=== PATIENT | male | born 1935 | race Caucasian/White ===

== ENCOUNTER 2016-08-07 15:52 | Emergency (ER) | payer MEDICARE ==
[2016-08-07] MEDS ORDERED: ASPIRIN 81 MG CHEWABLE TABLET PO ONE (17:11)
[2016-08-07] MEDS ORDERED: FUROSEMIDE IV 20MG/2ML VIAL IVP ONE (17:11)
--- NOTE | 2016-08-07 17:16 | Emergency Department Record ---
History of Present Illness - General Chief complaint: Swelling of legs Stated complaint: LEGS SWOLLEN Time Seen by Provider: 08/07/16 17:04 Source: Patient, RN Mode of Arrival: Ambulatory - History of Present Illness Initial comments: dyspnea and edema of legs and this has been going on for 6 months and he got a cardiac stent at [facility] in [place] with Dr. Latif. Patient denies chest pain. No leg pains and the edema is better in the am. Onset/Timin -: Month(s) Location: Bilateral, Foot, Lower Leg Consistency: Constant Improves with: Nothing Worsens with: Nothing Associated Symptoms: Denies other symptoms - Related Data Home Medications Medication Instructions Recorded Confirmed Last Taken Aspirin [Aspir-Low] 81 mg PO DAILY 08/07/16 08/07/16 08/07/16 Carvedilol [Coreg] 6.25 mg PO BID 08/07/16 08/07/16 08/07/16 Clopidogrel Bisulfate [Clopidogrel] 75 mg PO DAILY 08/07/16 08/07/16 08/07/16 Finasteride 5 mg PO DAILY 08/07/16 08/07/16 08/07/16 Furosemide [Lasix] 40 mg PO DAILY 08/07/16 08/07/16 08/07/16 Lisinopril 2.5 mg PO DAILY 08/07/16 08/07/16 08/07/16 Minocycline HCl [Minocin] 100 mg PO BID 08/07/16 08/07/16 08/07/16 Potassium Chloride 10 meq PO DAILY 08/07/16 08/07/16 08/07/16 Simvastatin [Zocor] 20 mg PO QHS 08/07/16 08/07/16 08/06/16 Tamsulosin HCl [Flomax] 0.4 mg PO DAILY 08/07/16 08/07/16 08/07/16 Allergies Allergy/AdvReac Type Severity Reaction Status Date / Time NO KNOWN DRUG ALLERGY Allergy Uncoded 06/24/13 10:05 Travel Screening - Travel/Exposure Within Last 30 Days Have you traveled within the last 30 days?: No - Travel/Exposure Within Last Year Have you traveled outside the [place] in the last year?: No - Additonal Travel Details Have you been exposed to anyone with a communicable illness?: No - Travel Symptoms Symptom Screening: None Review of Systems Reviewed: No additional complaints except as noted below Constitutional: Reports: As per HPI. Denies: Chills, Fever, Malaise, Night sweats, Weakness, Weight change Eyes: Reports: As per HPI. Denies: Eye discharge, Eye pain, Photophobia, Vision change ENT: Reports: As per HPI. Denies: Congestion, Dental pain, Ear pain, Epistaxis , Hearing loss, Throat pain Respiratory: Reports: As per HPI, Dyspnea. Denies: Cough, Hemoptysis, Stridor, Wheezes Cardiovascular: Reports: As per HPI. Denies: Arrhythmia, Chest pain, Dyspnea on exertion, Edema, Murmurs, Orthopnea, Palpitations, Paroxysmal nocturnal dyspnea, Rheumatic Fever, Syncope Endocrine: Reports: As per HPI. Denies: Fatigue, Heat or cold intolerance, Polydipsia, Polyuria Gastrointestinal: Reports: As per HPI. Denies: Abdominal pain, Constipation, Diarrhea, Hematemesis, Hematochezia, Melena, Nausea, Vomiting Genitourinary: Reports: As per HPI. Denies: Dysuria, Frequency, Hematuria, Incontinence, Retention, Testicular pain, Testicular mass, Urgency Musculoskeletal: Reports: As per HPI. Denies: Arthralgia, Back pain, Gout, Joint swelling, Myalgia, Neck pain Skin: Reports: As per HPI. Denies: Bruising, Change in color, Change in hair/ nails, Lesions, Pruritus, Rash Neurological: Reports: As per HPI. Denies: Abnormal gait, Confusion, Headache, Numbness, Paresthesias, Seizure, Tingling, Tremors, Vertigo, Weakness Psychiatric: Reports: As per HPI. Denies: Anxiety, Auditory hallucinations, Depression, Homicidal thoughts, Suicidal thoughts, Visual hallucinations Hematological/Lymphatic: Reports: As per HPI. Denies: Anemia, Blood Clots, Easy bleeding, Easy bruising, Swollen glands Past Medical History - SOCIAL HISTORY Smoking Status: Never smoker Alcohol Use: None Drug Use: None - RESPIRATORY Hx Respiratory Disorders: No - CARDIOVASCULAR Hx Cardio Disorders: Yes Comment:: stents / aneurysm - NEURO Hx Neuro Disorders: No - GI Hx GI Disorders: No - Hx Genitourinary Disorders: Yes Hx Bladder Problem: Yes Hx Prostate Problems: Yes - ENDOCRINE Hx Endocrine Disorders: No - MUSCULOSKELETAL Hx Musculoskeletal Disorders: No - PSYCH Hx Psych Problems: No - HEMATOLOGY/ONCOLOGY Hx Hematology/Oncology Disorders: No Family Medical History Any Significant Family History?: No Physical Exam - General General Appearance: Alert, Oriented x3, Cooperative, No acute distress - Head Head exam: Normal inspection - Eye Eye exam: Normal appearance, PERRL Pupils: Normal accommodation - ENT ENT exam: Normal exam, Mucous membranes moist, Normal external ear exam, Normal orophraynx, TM's normal bilaterally Ear exam: Normal external inspection. negative: External canal tenderness Nasal Exam: Normal inspection. negative: Discharge, Sinus tenderness Mouth exam: Normal external inspection, Tongue normal Teeth exam: Normal inspection. negative: Dental caries Throat exam: Normal inspection. negative: Tonsillar erythema, Tonsillar exudate - Neck Neck exam: Normal inspection, Full ROM. negative: Tenderness - Respiratory Respiratory exam: Normal lung sounds bilaterally. negative: Respiratory distress - Cardiovascular Cardiovascular Exam: Regular rate, Normal rhythm, Normal heart sounds - GI/Abdominal GI/Abdominal exam: Soft, Normal bowel sounds. negative: Tenderness - Rectal Rectal exam: Deferred - exam: Deferred - Extremities Extremities exam: Normal inspection, Full ROM, Normal capillary refill, Pedal edema. negative: Tenderness - Back Back exam: Reports: Normal inspection, Full ROM. Denies: Muscle spasm, Rash noted, Tenderness - Neurological Neurological exam: Alert, Normal gait, Oriented X3, Reflexes normal - Psychiatric Psychiatric exam: Normal affect, Normal mood - Skin Skin exam: Dry, Intact, Normal color, Warm Course Vital Signs 08/07/16 16:34 Temperature 97.9 F Pulse Rate [ 78 Pulse Ox Probe] Respiratory 23 Rate Blood Pressure 131/71 [Left Arm] Pulse Ox 96 Medical Decision Making - Data Complexity MDM Data: Labs Ordered and/or Reviewed, X-Ray Ordered and/or Reviewed (copd), EKG Ordered and/or Reviewed (LBBB same as previous) - Lab Data Result diagrams: 08/07/16 17:46 08/07/16 17:46 Disposition Clinical Impression: Lymph edema COPD (chronic obstructive pulmonary disease) Qualifiers: COPD type: unspecified COPD Qualified Code(s): J44.9 - Chronic obstructive pulmonary disease, unspecified Disposition: Home, Self-Care Condition: (1) Good Instructions: Leg Edema (ED), COPD (Chronic Obstructive Pulmonary Disease) (ED) Additional Instructions: follow up with Dr Velazco tomorrow at 10:00 am in the office take lasiz 40 mg twice a day knee high support socks Forms: Patient Portal Access Time of Disposition: 18:54
[2016-08-07] MEDS ORDERED: FUROSEMIDE IV 40MG/4ML VIAL IVP ONE (17:24)
[2016-08-07 17:50] LABS: BASO % 0.4 % (0-6); GRAN % 63.1 % (47-80); HEMATOCRIT 43.8 % (42.0-52.0); HEMOGLOBIN 13.7 gm/dl (14.0-18.0); LYMPH % 21.7 % (16-45); MEAN CELL VOLUME 104.8 fl (81-97); MEAN CORPUSCULAR HEMOGLOBIN 32.7 pg (27-33); MEAN CORPUSCULAR HGB CONC 31.3 g/dl (32-36); MEAN PLATELET VOLUME 10.9 fl (7.4-10.4); MONO % 10.8 % (0-9); PLATELET COUNT 229 K/uL (130-400); RED BLOOD COUNT 4.18 M/uL (4.40-5.70); WHITE BLOOD COUNT W/O DIFF 8.2 K/uL (4.2-12.2)
[2016-08-07 18:01] LABS: ANION GAP 6.9 (7-16); BLOOD UREA NITROGEN 21 mg/dL (9-20); CARBON DIOXIDE 30.1 mmol/L (22-30); CREATININE 1.2 mg/dL (0.66-1.25); EST GLOMERULAR FILTRATION RATE > 60 ml/min; GLUCOSE,RANDOM 102 mg/dL (70-110)
[2016-08-07 18:13] LABS: CKMB 1.9 ug/L (0-6); TROPONIN I 0.017 ng/mL (0.00-0.034)
--- NOTE | 2016-08-09 09:22 | RADIOLOGY REPORT ---
EXAM: CHEST, TWO VIEWS HISTORY: SHORTNESS OF BREATH FOR TWO DAYS. TECHNIQUE: PA and lateral views of the chest were obtained. Comparison: Two view chest 03/28/16. FINDINGS: The heart size is within normal limits. Chronic pleural density at the right base laterally probably by pleural thickening. Minor linear fibrosis or discoid atelectasis left base. The lungs appear somewhat hyperinflated suggesting underlying COPD. Mild spurring in the spine. IMPRESSION: 1. HYPERINFLATION SUGGESTING COPD. 2. CHRONIC PLEURAL THICKENING RIGHT BASE. JOB NUMBER: [id number] [facility]
== END 2016-08-07 19:08 | disposition home or self-care (01) ==
LOC: ER 15:52
DX: I89.0 Lymphedema, not elsewhere classified (principal); J44.9 Chronic obstructive pulmonary disease, unspecified; R06.00 Dyspnea, unspecified
CPT/HCPCS: 71020; 80048; 82553; 83880; 84484; 85025; 85730; 93005; 93010; 96374; 99284; J1940

== ENCOUNTER 2017-06-22 18:45 | Emergency (ER) | payer MEDICARE ==
--- NOTE | 2017-06-22 19:03 | Emergency Department Record ---
History of Present Illness - General Chief complaint: Lower Extremity Pain Stated complaint: POST OP LEG PROBLEM/VOMITING Time Seen by Provider: 06/22/17 19:00 Source: Patient Mode of Arrival: Ambulatory Limitations: No limitations - History of Present Illness Initial comments: 81 yo male presents to ED for evaluation of swelling and pain to the right lower extremity following an outpatient vein stripping procedure yesterday. Patient reports that he was placed in a pressure dressing following surgery which resulted in swelling both proximal and distal to the lower extremity wrap. Patient underwent surgery for chronic LE edema, denies history of DVT, and only takes ASA as a blood thinner. MD Complaint: Extremity pain, Extremity swelling Onset/Timin -: Days(s) Location: Right, Lower Leg History of Same: No Consistency: Constant Improves with: Other (removal of pressure dressing) Worsens with: Nothing Associated Symptoms: Denies other symptoms - Related Data Allergies Allergy/AdvReac Type Severity Reaction Status Date / Time NO KNOWN DRUG ALLERGY Allergy Uncoded 06/24/13 10:05 Travel Screening - Travel/Exposure Within Last 30 Days Have you traveled within the last 30 days?: No - Travel/Exposure Within Last Year Have you traveled outside the [place] in the last year?: No - Additonal Travel Details Have you been exposed to anyone with a communicable illness?: No - Travel Symptoms Symptom Screening: None Review of Systems Constitutional: Denies: Chills, Fever, Malaise, Night sweats Eyes: Denies: Eye discharge, Eye pain ENT: Denies: Congestion, Ear pain, Epistaxis Respiratory: Denies: Cough, Dyspnea Cardiovascular: Reports: Edema. Denies: Chest pain, Dyspnea on exertion Endocrine: Denies: Fatigue, Heat or cold intolerance Gastrointestinal: Denies: Abdominal pain, Nausea, Vomiting Genitourinary: Denies: Incontinence, Retention Musculoskeletal: Denies: Arthralgia, Back pain, Gout, Joint swelling Skin: Reports: Bruising. Denies: Change in color Neurological: Denies: Abnormal gait, Confusion, Headache, Seizure Psychiatric: Denies: Anxiety Hematological/Lymphatic: Denies: Anemia, Blood Clots Past Medical History - SOCIAL HISTORY Smoking Status: Never smoker Alcohol Use: None Drug Use: None - RESPIRATORY Hx Respiratory Disorders: No - CARDIOVASCULAR Hx Cardio Disorders: Yes Comment:: stents / aneurysm - NEURO Hx Neuro Disorders: No - GI Hx GI Disorders: No - Hx Genitourinary Disorders: Yes Hx Bladder Problem: Yes Hx Prostate Problems: Yes - ENDOCRINE Hx Endocrine Disorders: No - MUSCULOSKELETAL Hx Musculoskeletal Disorders: No - PSYCH Hx Psych Problems: No - HEMATOLOGY/ONCOLOGY Hx Hematology/Oncology Disorders: No Family Medical History Any Significant Family History?: No Physical Exam - General General Appearance: Alert, Oriented x3, Cooperative, Mild distress Limitations: No limitations - Head Head exam: Atraumatic, Normocephalic, Normal inspection Head exam detail: negative: Abrasion, Contusion, Toussaint's sign, General tenderness, Hematoma, Laceration - Eye Eye exam: Normal appearance. negative: Conjunctival injection, Periorbital swelling, Periorbital tenderness, Scleral icterus - ENT Ear exam: negative: Auricular hematoma, Auricular trauma Nasal Exam: negative: Active bleeding, Discharge, Dried blood, Foreign body Mouth exam: negative: Drooling, Laceration, Muffled voice, Tongue elevation - Neck Neck exam: Normal inspection. negative: Meningismus, Tenderness - Respiratory Respiratory exam: Normal lung sounds bilaterally. negative: Rales, Respiratory distress, Rhonchi, Stridor - Cardiovascular Cardiovascular Exam: Regular rate, Normal rhythm, Normal heart sounds - GI/Abdominal GI/Abdominal exam: Soft. negative: Rebound, Rigid, Tenderness - Rectal Rectal exam: Deferred - exam: Deferred - Extremities Extremities exam: Pedal edema, Other (Strong distal DPP on examination, warm to palpation, on calf pain on examination, ecchymosis present medially). negative : Calf tenderness, Tenderness - Back Back exam: Denies: CVA tenderness (R), CVA tenderness (L) - Neurological Neurological exam: Alert, Normal gait, Oriented X3 - Psychiatric Psychiatric exam: Normal affect, Normal mood - Skin Skin exam: Normal color. negative: Abrasion Type of lesion: negative: abrasion Course Vital Signs 06/22/17 18:49 Temperature 98.4 F Pulse Rate 77 Respiratory 20 Rate Blood Pressure 140/81 Pulse Ox 95 - Reevaluation(s) Reevaluation #1: 06/22/17 19:01 [facility] contacted per patient choice, case was discussed with Dr. Brown, will accept transfer for doppler evaluation. Disposition Disposition: Transfer Clinical Impression: Pain and swelling of lower leg Qualifiers: Laterality: right Qualified Code(s): M79.661 - Pain in right lower leg Disposition: Acute Care Hospital Transfer Transfer To: [facility] Reason For Transfer: US doppler Accepting Physician: Stephanie Time Discussed w/Accepting Physician: 19:01 Condition: (2) Stable Forms: Patient Portal Access Time of Disposition: 19:01 Quality - Quality Measures Quality Measures: N/A - Blood Pressure Screening Does Patient Have Any of the Following: Active Dx of HTN Blood Pressure Classification: Hypertensive Reading Systolic Measurement: 129 Diastolic Measurement: 98 Screening for High Blood Pressure: Patient Exclusion, Hx of HTN [G9744]
== END 2017-06-22 19:14 | disposition short-term general hospital (02) ==
LOC: ER 18:45
DX: G89.18 Other acute postprocedural pain (principal); M79.661 Pain in right lower leg; R11.11 Vomiting without nausea
CPT/HCPCS: 99283

== ENCOUNTER 2018-03-26 13:33 | Emergency (ER) | payer MEDICARE ==
--- NOTE | 2018-03-26 14:27 | Emergency Department Record ---
History of Present Illness - General Chief complaint: Hemorrhoids Stated complaint: RECTUM PAIN/HEMMERROID? Time Seen by Provider: 03/26/18 13:57 Source: Patient, Family Mode of Arrival: Ambulatory Limitations: No limitations - History of Present Illness Initial comments: The patient is here due to having a mass come out of his rectum yesterday while having a BM. The mass was soft and round and he did replace it back into the rectum. The incident was painless and since he denies any rectal pain or AP. The patient has no hx of similar issues. MD complaint: Other Onset/Timin -: Days(s) Radiation: None Quality: Painless Associated Symptoms: Denies other symptoms - Related Data Home Medications Medication Instructions Recorded Confirmed Last Taken Budesonide/Formoterol Fumarate 10.2 gm IH BID 03/26/18 03/26/18 Unknown [Symbicort 80-4.5 Mcg Inhaler] Doxycycline Hyclate 100 mg PO BID 03/26/18 03/26/18 03/26/18 Allergies Allergy/AdvReac Type Severity Reaction Status Date / Time NO KNOWN DRUG ALLERGY Allergy Uncoded 06/24/13 10:05 Travel Screening - Travel/Exposure Within Last 30 Days Have you traveled within the last 30 days?: No - Travel/Exposure Within Last Year Have you traveled outside the [place] in the last year?: No - Additonal Travel Details Have you been exposed to anyone with a communicable illness?: No - Travel Symptoms Symptom Screening: None Review of Systems Constitutional: Denies: Chills, Fever Eyes: Denies: Eye discharge ENT: Denies: Congestion Respiratory: Denies: Cough, Dyspnea Past Medical History - SOCIAL HISTORY Smoking Status: Former smoker Alcohol Use: None Drug Use: Heavy - RESPIRATORY Hx Respiratory Disorders: No - CARDIOVASCULAR Hx Cardio Disorders: Yes Hx Cardiac Cath: Yes Hx Hypertension: Yes Comment:: stents / aneurysm - NEURO Hx Neuro Disorders: No - GI Hx GI Disorders: No - Hx Genitourinary Disorders: Yes Hx Bladder Problem: Yes Hx Prostate Problems: Yes - ENDOCRINE Hx Endocrine Disorders: No - MUSCULOSKELETAL Hx Musculoskeletal Disorders: No - PSYCH Hx Psych Problems: No - HEMATOLOGY/ONCOLOGY Hx Hematology/Oncology Disorders: No Family Medical History Any Significant Family History?: Yes Hx Cancer: Mother, Brother/Sister Hx Diabetes: Children, Brother/Sister Hx Heart Disease: Father Hx HTN: Father Physical Exam - General General Appearance: Alert, Oriented x3, Cooperative, No acute distress - Head Head exam: Atraumatic, Normocephalic - Eye Eye exam: Normal appearance, PERRL - Neck Neck exam: Normal inspection, Full ROM. negative: Tenderness - Respiratory Respiratory exam: Normal lung sounds bilaterally. negative: Respiratory distress - Cardiovascular Cardiovascular Exam: Regular rate, Normal rhythm, Normal heart sounds - GI/Abdominal GI/Abdominal exam: Soft, Normal bowel sounds. negative: Distended, Guarding, Hernia, Rebound, Rigid, Tenderness - Rectal Rectal exam: Hemorrhoids (There is a small hemorrhoid in the 2:00 position. ), Normal rectal tone. negative: Decreased rectal tone, Mass, Normal inspection Course Vital Signs 03/26/18 13:44 Temperature 97.4 F L Pulse Rate 84 Respiratory 18 Rate Blood Pressure 149/71 Pulse Ox 94 L - Reevaluation(s) Reevaluation #1: I did discuss with the patient that I do believe he had a rectal prolapse yesterday. He is doing very well now and denies any problems. I did discuss the case with Dr. Rojo and he would like the patient to continue his stool softeners and to return to the ER for any worsening issued. The patient does have an appointment with his PCP next week. 03/26/18 14:32 Disposition Disposition: Discharge Clinical Impression: Rectal mucosa prolapse Disposition: Home, Self-Care Condition: (2) Stable Instructions: Hemorrhoids (ED) Additional Instructions: Please continue your stool softeners and use Hemorrhoid cream daily. Please see Dr. Velazco next week as planned and return to the ER for any worsening symptoms. Forms: Patient Portal Access Time of Disposition: 14:26 Quality - Quality Measures Quality Measures: N/A - Blood Pressure Screening View Details: Yes Does Patient Have Any of the Following: Active Dx of HTN Blood Pressure Classification: Hypertensive Reading Systolic Measurement: 149 Diastolic Measurement: 71 Screening for High Blood Pressure: Patient Exclusion, Hx of HTN [G9744]
== END 2018-03-26 14:31 | disposition home or self-care (01) ==
LOC: ER 13:33
DX: K62.3 Rectal prolapse (principal); K64.9 Unspecified hemorrhoids; I10 Essential (primary) hypertension; Z87.891 Personal history of nicotine dependence
CPT/HCPCS: 99283